=== PATIENT | female | born 1955 | race Caucasian/White ===

== ENCOUNTER → 2016-08-05 | Outpatient (CLI) | payer MEDICARE ==
[~2016-08-05] MED LIST: CLONIDINE0.3 MG PO; GABAPENTIN300 MG PO; HYDROCHLOROTHIA25 MG PO; IBUPROFEN400 MG PO; LEXAPRO10 MG PO; NORCO 325 MG-51 TAB PO; ROBAXIN750 MG PO; TRAMADOL50 MG PO; VICODIN 5/500 505 MG PO; ZESTRIL,PRINIVI40 MG PO
== END | disposition home or self-care (01) ==
LOC: CARD 12:00
DX: Z01.818 Encounter for other preprocedural examination (principal); R94.31 Abnormal electrocardiogram [ECG] [EKG]; I51.7 Cardiomegaly; I35.0 Nonrheumatic aortic (valve) stenosis

== ENCOUNTER → 2016-09-30 | Outpatient (CLI) | payer MEDICARE ==
[2016-09-30 15:23] LABS: BASO # 0.1 10*3/uL (0.0-0.1); BASO % 0.6 % (0.0-1.0); EOS # 0.2 10*3/uL (0.0-0.4); EOS % 2.5 % (1.0-4.0); HEMATOCRIT 33.6 % (37.0-47.0); IG # 0.1 10*3/uL (0.0-0.1); LYMPH # 1.2 10*3/uL (1.3-4.4); LYMPH % 12.7 % (27.0-41.0); MEAN CELL VOLUME 92.3 fl (81.0-99.0); MEAN CORPUSCULAR HGB 30.2 pg (27.0-31.0); MEAN CORPUSCULAR HGB CONC 32.7 g/dl (33.0-37.0); MEAN PLATELET VOLUME 9.5 fl (9.6-12.3); MONO # 0.9 10*3/uL (0.1-1.0); MONO % 9.6 % (3.0-9.0); NEUT # 6.8 10*3/uL (2.3-7.9); PLATELET COUNT AUTOMATED 204 10*3/uL (130-400); RED BLOOD COUNT 3.64 10*6/uL (4.10-5.10); RED CELL DISTRI WIDTH 14.3 % (0-14.5); WHITE BLOOD COUNT 9.2 10*3/uL (4.8-10.8)
[2016-09-30 15:53] LABS: ALBUMIN 2.8 gm/dl (3.1-4.5); ALKALINE PHOSPHATASE 82 U/L (45-117); BILIRUBIN, TOTAL 0.3 mg/dl (0.2-1.0); BUN 6 mg/dl (7-24); CARBON DIOXIDE 29 mmol/L (21-32); CHLORIDE 93 mmol/L (98-107); EST GLOM FILT AFRICAN AMERICAN > 60 ml/min; GLUCOSE 102 mg/dL (65-99); LDH 143 U/L (84-246); MAGNESIUM 2.3 mg/dL (1.5-2.1); PHOSPHOROUS 3.3 mg/dL (2.5-4.9); POTASSIUM 4.6 mmol/L (3.5-5.1); SGOT/AST 14 IU/L (3-35); SGPT/ALT 17 U/L (12-78); SODIUM 130 mmol/L (136-145)
== END | disposition home or self-care (01) ==
LOC: LAB 14:52
PROVIDERS: Obstetrics & Gynecology Gynecology
DX: N90.1 Moderate vulvar dysplasia (principal)

== ENCOUNTER 2017-03-04 23:14 | Inpatient (IN) | payer MEDICARE ==
[~2017-03-04] VITALS: Ht 172.7 cm; Wt 119.4 kg
--- NOTE | ~2017-03-04 | ST ---
[place], [place] EXERCISE STRESS TEST REPORT NAME: ARSENIO MURPHY [facility] #: [id number] UNIT #: [id number] ROOM: 529 DOCTOR: CLAUDY REYNA MD BIRTHDATE: [birth year] DOS: 03/08/2017 LEXISCAN STRESS EKG REPORT REFERRING PHYSICIAN: Dr. Ayala. INDICATION: Elevated troponin. DESCRIPTION OF PROCEDURE: The patient underwent standard protocol Lexiscan stress EKG. The patient's baseline EKG shows normal sinus rhythm with right bundle-branch block. The patient's baseline heart rate was 70 with a blood pressure 160/78. The patient's peak heart rate was 94 with a blood pressure 144/72. The patient had no ischemic changes to his EKG. The patient had no arrhythmias and no anginal symptoms. SUMMARY OF FINDINGS: Unremarkable Lexiscan stress EKG. Please see separate report for perfusion scan results. CLAUDY REYNA MD CM:STRESS:EXERCISE STRESS TEST REPORT [id number] CLAUDY REYNA MD
--- NOTE | ~2017-03-04 | PR ---
[place], [place] PROGRESS NOTE NAME: ARSENIO MURPHY UNIT #: [id number] ROOM: [facility] DOCTOR: CHRISTIANO TANG MD BIRTHDATE: [birth year] DOS: 03/06/2017 CARDIOLOGY FOLLOWUP VISIT NOTE SUBJECTIVE: The patient with valvular heart disease and elevated troponin. The patient is feeling better. Denies any chest pain or shortness of breath. No palpitations, no dizziness. She appears slightly dehydrated, getting IV. No PND, no orthopnea. REVIEW OF SYSTEMS: Review of the 8 systems negative except as mentioned. RHYTHM STRIPS: The patient is in sinus rhythm. PHYSICAL EXAMINATION: VITAL SIGNS: Blood pressure is 90/52, pulse 83, respiratory rate is 16. GENERAL: Alert, comfortable, in no acute distress. HEAD AND NECK: Pupils are round and equal. No jaundice. THROAT: Tongue was moist and pharynx was clear. NECK: Supple, no distended neck veins, no carotid bruit. CHEST: Symmetrical, nontender. LUNGS: Diffuse scattered rhonchi. Good air entry bilaterally. HEART: Regular rhythm, no S3, grade 2/6 systolic ejection murmur. No palpable thrills. ABDOMEN: Obese, nontender. Bowel sounds normal. EXTREMITIES: Showed 1+ edema. Distal pulses are palpable. SKIN: Warm and dry. No cyanosis, no clubbing. RECTAL: Deferred. GENITOURINARY: Deferred. MEDICATIONS AND ALLERGIES: Reviewed. IMPRESSION: 1. Elevated troponins, currently denies any chest pains. 2. Moderate aortic stenosis. 3. Mild hypotension, positive due to dehydration. 4. Falls. 5. Obesity. RECOMMENDATIONS: 1. Continue current medications. 2. Continue IV fluids. She denies any chest pain. Clinically, no acute heart failure. Lexiscan stress test on Wednesday due to her elevated troponin and CAD risk factors. 3. No family at bedside at the time of my examination. 4. Her blood pressure medications were on hold due to her low blood pressure. [place], [place] PROGRESS NOTE NAME: ARSENIO MURPHY UNIT #: [id number] ROOM: [facility] DOCTOR: CHRISTIANO TANG MD BIRTHDATE: [birth year] CHRISTIANO TANG MD CM:PNJEAN 1525 57 CHRISTIANO TANG MD 03/06/176 interface
--- NOTE | ~2017-03-04 | PR ---
[place], [place] PROGRESS NOTE [id number] #: [id number] ROOM: 529 DOCTOR: CHRISTIANO TANG MD BIRTHDATE: [birth year] DOS: 03/07/2017 REASON FOR VISIT: Valvular heart disease and elevated cardiac enzymes. HISTORY OF PRESENT ILLNESS: The patient denies any chest pain. Breathing is better. She slept good and denies any palpitations or dizziness, no PND, no orthopnea, no nausea or vomiting. REVIEW OF SYSTEMS: Review of the 8 systems negative except as mentioned above. PHYSICAL EXAMINATION: VITAL SIGNS: Reviewed. GENERAL: Alert, comfortable, in no acute distress. HEENT: Pupils are round and equal. No jaundice. NECK: Supple, no distended neck veins, no carotid bruit. CHEST: Nontender. LUNGS: Clear to auscultation bilaterally. HEART: Regular rhythm, no S3, grade 2/6 systolic murmur. EXTREMITIES: Showed trace edema. Distal pulses are palpable. SKIN: Warm and dry. No cyanosis, no clubbing. NEUROLOGIC: Reviewed. IMPRESSION: 1. Borderline elevation of troponin. 2. Moderate aortic stenosis. 3. Mild hypertension, asymptomatic. 4. Mild dehydration, resolved. 5. History of falls. 6. Exogenous obesity. RECOMMENDATIONS: 1. Continue current medications. 2. Lexiscan stress tomorrow to rule out ischemia due to her elevated cardiac enzymes and CAD risk factors. 3. The above treatment was discussed with the patient and her family member who is at bedside and all questions were answered. [place], [place] PROGRESS NOTE [facility]: [id number] UN[facility] #: [id number] ROOM: 529 DOCTOR: CHRISTIANO TANG MD BIRTHDATE: [birth year] CHRISTIANO TANG MD CM:PNTRANS 9 [id number] CHRISTIANO TANG MD 03/07/172137 interface
[2017-03-04 23:14] VITALS: BP 162/85
[2017-03-05] VITALS (9 sets, daily range): BP systolic 74–110; BP diastolic 49–62
[2017-03-05 00:45] LABS: HEMATOCRIT 33.7 % (37.0-47.0); MEAN CELL VOLUME 88.2 fl (81.0-99.0); MEAN CORPUSCULAR HGB 28.8 pg (27.0-31.0); MEAN CORPUSCULAR HGB CONC 32.6 g/dl (33.0-37.0); MEAN PLATELET VOLUME 10.2 fl (9.6-12.3); PLATELET COUNT AUTOMATED 238 10*3/uL (130-400); RED BLOOD COUNT 3.82 10*6/uL (4.10-5.10); RED CELL DISTRI WIDTH 14.6 % (0-14.5); WHITE BLOOD COUNT 23.5 10*3/uL (4.8-10.8)
[2017-03-05 01:03] LABS: ALBUMIN 2.5 gm/dl (3.1-4.5); CREATININE 1.7 mg/dL (0.55-1.02); POTASSIUM 4.3 mmol/L (3.5-5.1); TOTAL PROTEIN 7.1 gm/dL (6.4-8.2)
[2017-03-05 01:05] LABS: TROPONIN I 0.174 ng/ml (<0.045)
--- NOTE | 2017-03-05 01:11 | NUR ---
PATIENT'S PASSWORD IS "YOUNG 1"
[2017-03-05 01:18] LABS: PLATELET SUFFICIENCY NORMAL (NORMAL); TOTAL CELLS COUNTED 100 #CELLS
--- NOTE | 2017-03-05 01:22 | NUR ---
PATIENT ACCIDENTLY PULLED OUT HER SECOND IV. ANOTHER NURSE WILL ATTEMPT TO PUT IN ANOTHER ONE.
[2017-03-05 01:57] LABS: BILIRUBIN NEGATIVE (NEGATIVE); BLOOD 3+ (NEGATIVE); CLARITY CLOUDY (CLEAR); COLOR YELLOW (YELLOW); GLUCOSE NEGATIVE (NEGATIVE); KETONE NEGATIVE (NEGATIVE); LEUKO ESTERASE 3+ (NEGATIVE); NITRITE NEGATIVE (NEGATIVE); SPECIFIC GRAVITY 1.015 (1.005-1.030); UROBILINOGEN 0.2 E.U./dl (0.2-1.0)
[2017-03-05 02:04] LABS: BACTERIA 4+; WBC TNTC wbc/hpf (0-5)
[2017-03-05 02:05] LABS: RBC 21-30 rbc/hpf (0-2)
--- NOTE | 2017-03-05 03:30 | NUR ---
A 61, admitted to ICCU, under the services of LYNDSEY Hernandez DO with a diagnosis of SEVERE SEPSIS,UTI,CHF. Chief complaint is FALLING AT HOME. Patient arrived via stretcher from ER. Monitor applied. Initial assessment completed. Vital signs taken and recorded. LYNDSEY HERNANDEZ DO notified of admission to the unit. Orders received. See assessment for past medical history, medications and allergies. Patient and/or family oriented to unit. [facility] ICCU visitation policy reviewed. Clothing/patient valuable form completed. KAREN MATHEWS
[2017-03-05] MEDS ORDERED: NEURONTIN100 MG PO (03:50)
[2017-03-05] MEDS ORDERED: CLONIDINE0.2 MG PO (03:51)
[2017-03-05] MEDS ORDERED: LISINOPRIL20 MG PO (03:52)
[2017-03-05] MEDS ORDERED: VITAMIN D10000 UNIT PO (03:53)
[2017-03-05 03:57] LABS: CKMB 20.5 ng/ml (0.5-3.6)
[2017-03-05 04:47] LABS: HEMATOCRIT 30.6 % (37.0-47.0); HEMOGLOBIN 9.9 g/dl (12.0-16.0); MEAN CELL VOLUME 87.9 fl (81.0-99.0); MEAN CORPUSCULAR HGB 28.4 pg (27.0-31.0); MEAN CORPUSCULAR HGB CONC 32.4 g/dl (33.0-37.0); MEAN PLATELET VOLUME 10.2 fl (9.6-12.3); PLATELET COUNT AUTOMATED 217 10*3/uL (130-400); RED BLOOD COUNT 3.48 10*6/uL (4.10-5.10); RED CELL DISTRI WIDTH 14.6 % (0-14.5); WHITE BLOOD COUNT 23.1 10*3/uL (4.8-10.8)
[2017-03-05 04:57] LABS: INTERNATIONAL NORM RATIO 1.3 (2.0-3.5)
[2017-03-05 05:05] LABS: ALBUMIN 2.1 gm/dl (3.1-4.5); CREATININE 1.74 mg/dL (0.55-1.02); PHOSPHOROUS 3.7 mg/dL (2.5-4.9); POTASSIUM 4.6 mmol/L (3.5-5.1); TOTAL PROTEIN 6.6 gm/dL (6.4-8.2)
[2017-03-05 05:06] LABS: FREE T4 1.51 ng/dl (0.76-1.46)
[2017-03-05 05:11] LABS: THYROID STIM HORMONE (HS) 1.31 uIU/ml (0.358-4.75)
[2017-03-05 05:17] LABS: ATYPICAL LYMPHS 1 % (0-0); PLATELET SUFFICIENCY NORMAL (NORMAL); TOTAL CELLS COUNTED 100 #CELLS
--- NOTE | 2017-03-05 05:46 | NUR ---
PRIME SEPSIS REP CALLED AND WANTED ROCEPHIN GIVEN BEFORE 0700. SINAN IN ER AROUND [phone] FINISHED HERE IN ICCU.
--- NOTE | 2017-03-05 07:05 | NUR ---
DR. ABBOTT AWARE OF CONSULT.
[2017-03-05 07:13] LABS: URINE AMPHETAMINES < 1000 (1000ng/ml); URINE BARBITURATES < 200 (200ng/ml); URINE BENZODIAZEPINES < 200 (200ng/ml); URINE CANNABINOIDS (THC) < 50 (50ng/ml); URINE COCAINE < 300 (300ng/ml); URINE METHADONE < 300 (300ng/ml); URINE OPIATES < 300 (300ng/ml)
[2017-03-05 07:30] LABS: URINE PHENCYCLIDINE < 25 (25ng/ml)
--- NOTE | 2017-03-05 08:29 | NUR ---
PATIENT C/O PAIN "ALL OVER". MEDICATED WITH NORCO PER PRN ORDER. WILL CONTINUE TO MONITOR.
--- NOTE | 2017-03-05 09:26 | NUR ---
HELD CATAPRES HELD DUE TO BLOOD PRESSURE 90/56.
--- NOTE | 2017-03-05 09:38 | NUR ---
Patient at ultrasound testing and not able to participated in OT evaluation at this time. OTR will recheck at a later time. Mony Dallas OTR/l
--- NOTE | 2017-03-05 10:32 | NUR ---
Patient offered OT evaluation this date s/p ultrasound. Patient declined OT this am. OTR will recheck at a later date. Mony Dallas OTR/l
--- NOTE | 2017-03-05 10:34 | NUR ---
PHYSICAL THERAPY Two attempts this date: first at ultrasound and the patient requested later time or date. Thank you for this referral. Smiley Simons,PT
--- NOTE | 2017-03-05 12:16 | NUR ---
NOTIFIED OF BLOOD PRESSURE 83/50.
--- NOTE | 2017-03-05 12:39 | NUR ---
In to see patient to discuss order for senior care stay. Patient stated she wants a private room at [facility]. I explained the facility is full right now and no private rooms are available at this time. Asked if she would be willing to go to [facility] and she adamately refused. She stated her thinks she needs to go but if she can't have a private room at [facility] then she is going home. Offered home health with PT and patient was agreeable to this. Offered list of agencies, patient chooses [facility]. will need new home health order for nurse, PT prior to discharge.
--- NOTE | 2017-03-05 13:37 | NUR ---
NOTIFIED OF FLUID BOLUD BEING COMPLETE AND REPEAT BLOOD PRESSURE 77/49. AND ALSO NOTIFIED OF PATIENT C/O ITCHY EYES AND DRAINAGE.
--- NOTE | 2017-03-05 14:16 | NUR ---
PHYSICAL THERAPY PAtient on bedisde commode for long period fo time and then [facility] Doctors. Smiley Simons,PT
[2017-03-05 14:30] LABS: BASO % 0.3 % (0.0-1.0); EOS # 0.1 10*3/uL (0.0-0.4); EOS % 0.9 % (1.0-4.0); HEMATOCRIT 31.2 % (37.0-47.0); HEMOGLOBIN 10.1 g/dl (12.0-16.0); LYMPH # 0.6 10*3/uL (1.3-4.4); LYMPH % 3.7 % (27.0-41.0); MEAN CELL VOLUME 89.9 fl (81.0-99.0); MEAN CORPUSCULAR HGB 29.1 pg (27.0-31.0); MEAN CORPUSCULAR HGB CONC 32.4 g/dl (33.0-37.0); MEAN PLATELET VOLUME 10.1 fl (9.6-12.3); MONO # 0.7 10*3/uL (0.1-1.0); MONO % 4.8 % (3.0-9.0); NEUT # 13.4 10*3/uL (2.3-7.9); NEUT % 89.6 % (47.0-73.0); PLATELET COUNT AUTOMATED 217 10*3/uL (130-400); RED BLOOD COUNT 3.47 10*6/uL (4.10-5.10); RED CELL DISTRI WIDTH 14.8 % (0-14.5); WHITE BLOOD COUNT 14.9 10*3/uL (4.8-10.8)
[2017-03-05 14:45] LABS: ALBUMIN 2.2 gm/dl (3.1-4.5); CREATININE 1.51 mg/dL (0.55-1.02); POTASSIUM 4.7 mmol/L (3.5-5.1); TOTAL PROTEIN 6.6 gm/dL (6.4-8.2)
[2017-03-05 14:47] LABS: TROPONIN I 0.071 ng/ml (<0.045)
--- NOTE | 2017-03-05 14:49 | NUR ---
PHYSICAL THERAPY PAtient evaluated in ICCU, full evaluation to follow. Continue with PT as per plan of care with fall and acute debiltiy precautions. PAtient may require SNF for impaired mobility in order to reurn to home at safe and (I) PLOF. PAtient has had numerous fallls this week prior to admissions. PAtient is moderate complexity via chart review, tests and evaluation: 99237. Thank you for this referral. Smiley Simons,PT
--- NOTE | 2017-03-05 17:36 | NUR ---
PATIENT REQUESTING A PAIN PILL. STATING SHE IS HURTING ALL OVER. MEDICATED WITH TAWANA TODDCO.
--- NOTE | 2017-03-05 20:27 | NUR ---
UP WITH HEAVY ASSIST OF ONE TO BSC. PT WITHOUT COMPLAINTS. SKIN W/D.
[2017-03-06] VITALS: BP 91/55
[2017-03-06 04:00] VITALS: BP 96/60
[2017-03-06 04:26] LABS: BASO # 0.1 10*3/uL (0.0-0.1); BASO % 0.4 % (0.0-1.0); EOS # 0.2 10*3/uL (0.0-0.4); EOS % 1.3 % (1.0-4.0); HEMATOCRIT 30.4 % (37.0-47.0); HEMOGLOBIN 9.7 g/dl (12.0-16.0); LYMPH # 0.6 10*3/uL (1.3-4.4); MEAN CELL VOLUME 90.2 fl (81.0-99.0); MEAN CORPUSCULAR HGB 28.8 pg (27.0-31.0); MEAN CORPUSCULAR HGB CONC 31.9 g/dl (33.0-37.0); MEAN PLATELET VOLUME 9.8 fl (9.6-12.3); NEUT # 10.5 10*3/uL (2.3-7.9); NEUT % 84.6 % (47.0-73.0); PLATELET COUNT AUTOMATED 200 10*3/uL (130-400); RED BLOOD COUNT 3.37 10*6/uL (4.10-5.10); RED CELL DISTRI WIDTH 14.7 % (0-14.5); WHITE BLOOD COUNT 12.5 10*3/uL (4.8-10.8)
[2017-03-06 04:51] LABS: CREATININE 1.16 mg/dL (0.55-1.02); POTASSIUM 4.2 mmol/L (3.5-5.1)
[2017-03-06 08:00] VITALS: BP 90/52
[2017-03-06 12:00] VITALS: BP 91/49
[2017-03-06 16:00] VITALS: BP 106/70
--- NOTE | 2017-03-06 16:03 | NUR ---
PT WALKER AROUND THE ICCU AREA,USING A WALKER,TOLERATED WELL,NO SHORTNESS F BREATH OR TACHYCARDIA,GAIT SLOW/STEAD/ONLY HAS TROUBLE GET UP AND DOWN TO CHAIR
--- NOTE | 2017-03-06 17:57 | NUR ---
BACK TO BED
--- NOTE | 2017-03-06 19:34 | NUR ---
24 HR AND COMPLETE chart check completed. NATE MEDINA RN
[2017-03-06 20:00] VITALS: BP 120/74
[2017-03-07] VITALS: BP 113/62
[2017-03-07 04:00] VITALS: BP 108/62
[2017-03-07 05:14] LABS: BASO # 0.1 10*3/uL (0.0-0.1); BASO % 0.8 % (0.0-1.0); EOS # 0.2 10*3/uL (0.0-0.4); EOS % 2.3 % (1.0-4.0); HEMATOCRIT 27.4 % (37.0-47.0); HEMOGLOBIN 8.9 g/dl (12.0-16.0); LYMPH # 0.6 10*3/uL (1.3-4.4); LYMPH % 8.3 % (27.0-41.0); MEAN CELL VOLUME 90.7 fl (81.0-99.0); MEAN CORPUSCULAR HGB 29.5 pg (27.0-31.0); MEAN CORPUSCULAR HGB CONC 32.5 g/dl (33.0-37.0); MEAN PLATELET VOLUME 10.6 fl (9.6-12.3); MONO # 0.8 10*3/uL (0.1-1.0); MONO % 11.3 % (3.0-9.0); NEUT # 5.7 10*3/uL (2.3-7.9); NEUT % 76.5 % (47.0-73.0); PLATELET COUNT AUTOMATED 182 10*3/uL (130-400); RED BLOOD COUNT 3.02 10*6/uL (4.10-5.10); RED CELL DISTRI WIDTH 14.8 % (0-14.5); WHITE BLOOD COUNT 7.4 10*3/uL (4.8-10.8)
[2017-03-07 05:30] LABS: ALBUMIN 1.9 gm/dl (3.1-4.5); ALKALINE PHOSPHATASE 81 U/L (45-117); BUN 14 mg/dl (7-24); CHLORIDE 101 mmol/L (98-107); CREATININE 0.78 mg/dL (0.55-1.02); POTASSIUM 4.3 mmol/L (3.5-5.1); SGOT/AST 38 IU/L (3-35); SGPT/ALT 32 U/L (12-78); SODIUM 133 mmol/L (136-145)
[2017-03-07 08:00] VITALS: BP 147/88
[2017-03-07 12:00] VITALS: BP 121/72
--- NOTE | 2017-03-07 14:47 | NUR ---
Transferred to [facility] via bed . Report to Jocelyn.
[2017-03-07 16:00] VITALS: BP 167/92
--- NOTE | 2017-03-07 19:50 | NUR ---
PT. AWAKE, ALERT AND ORIENTED X 3 AT THIS TIME. PT. IN BED DENIES SOB, CP. CALL LIGHT WITHIN REACH, BED IN LOWEST POSITION, WHEELS LOCKED, BED ALARM ON FOR RECENT FALL HX. SEE SHIFT ASSESSMENT.
[2017-03-07 20:00] VITALS: BP 117/68
--- NOTE | 2017-03-07 22:43 | NUR ---
@1005 RECEIVED CRITICAL RESULT ON PTS. BLOOD CULTURE. CALLED AND NOTIFIED DR. ESPANA OF CRITICAL RESULT. DR. ESPANA INSTRUCTED THIS NURSE TO ORDER A REPEAT BLOOD CULTURE AND INFECTIOUS DISEASE CONSULT.
[2017-03-08] VITALS: BP 122/58
[2017-03-08 04:00] VITALS: BP 126/64
[2017-03-08 06:19] LABS: BASO % 0.7 % (0.0-1.0); EOS # 0.1 10*3/uL (0.0-0.4); EOS % 2.3 % (1.0-4.0); HEMATOCRIT 29.5 % (37.0-47.0); HEMOGLOBIN 9.4 g/dl (12.0-16.0); LYMPH # 0.8 10*3/uL (1.3-4.4); LYMPH % 13.7 % (27.0-41.0); MEAN CELL VOLUME 90.2 fl (81.0-99.0); MEAN CORPUSCULAR HGB 28.7 pg (27.0-31.0); MEAN CORPUSCULAR HGB CONC 31.9 g/dl (33.0-37.0); MEAN PLATELET VOLUME 10.7 fl (9.6-12.3); MONO # 0.7 10*3/uL (0.1-1.0); MONO % 11.7 % (3.0-9.0); NEUT % 70.9 % (47.0-73.0); PLATELET COUNT AUTOMATED 187 10*3/uL (130-400); RED BLOOD COUNT 3.27 10*6/uL (4.10-5.10); RED CELL DISTRI WIDTH 14.8 % (0-14.5); WHITE BLOOD COUNT 5.6 10*3/uL (4.8-10.8)
[2017-03-08 06:50] LABS: ALKALINE PHOSPHATASE 91 U/L (45-117); BUN 10 mg/dl (7-24); CHLORIDE 101 mmol/L (98-107); CREATININE 0.79 mg/dL (0.55-1.02); POTASSIUM 4.6 mmol/L (3.5-5.1); SGOT/AST 26 IU/L (3-35); SGPT/ALT 32 U/L (12-78); SODIUM 134 mmol/L (136-145); TOTAL PROTEIN 6.3 gm/dL (6.4-8.2)
[2017-03-08 08:00] VITALS: BP 136/80
--- NOTE | 2017-03-08 08:04 | NUR ---
DR CHO'S OFFICE NOTIFIED OF CONSULT.
--- NOTE | 2017-03-08 09:07 | NUR ---
Patient not available for Occupational Therapy evaluation this am as she was on the commode with her assisting. asked about her "rehab". OT informed with patient present, that patient did have PT evaluation 03/05/17 but that he would need to speak with case management on the 4th floor for further d/c plans. OTR will recheck at a later time. Mony Dallas OTR/vanessa
--- NOTE | 2017-03-08 09:11 | NUR ---
SW SPOKE WITH PT AND . CAN NOT TAKE CARE OF PT IF SHE CAN NOT TRANSFER AT HOME. HAS A BAD BACK. REQUESTING A WHELLHCAIR FOR AT HOME IF [facility] DOES NOT HAVE A PRIVATE ROOM.
--- NOTE | 2017-03-08 09:13 | NUR ---
JEYSON INQUIRED AT [facility] IF THEY HAD A PRIVATE ROOM. PAMELLA NOTIFIED JEYSON THAT PRIVATE ROOM WOULD BE AVAILBLE LATER TODAY. JEYSON SENT REFERRAL TO [facility].
--- NOTE | 2017-03-08 09:36 | NUR ---
SW COMPLETED HOSPITAL EXEMPTION IN HENS SYSTEM FOR REHAB STAY AT THE [facility].
[2017-03-08 12:00] VITALS: BP 137/75
--- NOTE | 2017-03-08 12:02 | NUR ---
INFORMED SIGNED CONSENT OBTAINED FOR LEXISCAN STRESS TEST WITH DR REYNA, RESTING EKG HR 78 BP 160/78. PULSE OX 100% LUNGS CLEAR. PT COMPLETED ONE MINUTE OF LEXISCAN PROTOCOL WITH PT RECEIVING LEXISCAN 0.4MG IV OVER OVER 10 SECONDS. PT C/O SOB AND HEADACHE WITH INFUSION. NO ARRHYTHMIAS OR ST CHANGES NOTED. LAST RECOVERY HR OF 92 BP 166/88. PT IN STABLE CONDITION, AWAITING NUCLEAR IMAGES.
--- NOTE | 2017-03-08 12:17 | NUR ---
PHYSICAL THERAPY Kellen seen this AM 1:1 for her therapy session. Transfer supine/sit MIN A X 1, sitting balance CGA X 1, sit/stand and up on wheeled walker MIN A X 1. Gait 10' X 2, with W/W into Pt's bathroom MIN A X 1. Followed by gait total 85' X 1, MOD A X 1, with W/W no LOB, verbal cueing for gait, walker safety and present. Pt back supine in bed call light and no complaint. MARQUIS SHARP HORIZONTAL DRILL OPERATOR.
--- NOTE | 2017-03-08 14:16 | NUR ---
Patient approached for Occupational Therapy evaluation this pm. Daughter present and patient eating lunch/snack in bed. Patient and daughter reports that patient will be transferred to [facility]SNF before 4:30 pm today and politely decline OT evaluation d/t transfer. Thank you for this referral Mony Dallas OTR/l
[2017-03-08] MEDS ORDERED: VITAMIN D5000 UNI1 PO (15:30)
[2017-03-08] MEDS ORDERED: NATURE'S BLEND100 M2 PO (15:30)
[2017-03-08] MEDS ORDERED: ASPIRIN ADULT L81 M2 PO (15:30)
[2017-03-08] MEDS ORDERED: NATURE'S BLEND F1 MG PO (15:30)
[2017-03-08] MEDS ORDERED: DOXYCYCLINE100 M3 PO (15:31)
[2017-03-08 16:00] VITALS: BP 120/69
--- NOTE | 2017-03-08 18:42 | NUR ---
REPORT CALLED TO ZEN AT [facility].
--- NOTE | 2017-03-08 18:42 | NUR ---
Discharge instructions reviewed with patient/family. Patient receptive and verbalizes understanding. Follow-up care arranged. Written instructions given to patient/family. SHARON CERVANTES
--- NOTE | 2017-03-08 19:52 | NUR ---
PT DISCHARGED OFF FLOOR VIA [facility]. PT STABLE. [place] REMOVED
--- NOTE | 2017-03-09 07:43 | NUR ---
PHYSICAL THERAPY CO-SIGN I approve of the Phyical Therapy notes written above. CAROL FARMER PT
== END 2017-03-08 19:52 | disposition other institution (70) | DRG 871 ==
LOC: ED 23:14 → ICCU 03-05 02:54 → 5E 03-07 14:05
PROVIDERS: Emergency Medicine; Internal Medicine; ADMIT Internal Medicine
PROC: 4A02XM4 Measurement of Cardiac Total Activity, External Approach (ICD-10-PCS; principal; 2017-03-08)
PROC: 3E073KZ Introduction of Other Diagnostic Substance into Coronary Artery, Percutaneous Approach (ICD-10-PCS; principal; 2017-03-08)
DX: A41.9 Sepsis, unspecified organism (principal); G93.41 Metabolic encephalopathy; N17.0 Acute kidney failure with tubular necrosis; E43 Unspecified severe protein-calorie malnutrition; I11.0 Hypertensive heart disease with heart failure; I95.9 Hypotension, unspecified; E66.01 Morbid (severe) obesity due to excess calories; E87.8 Other disorders of electrolyte and fluid balance, not elsewhere classified; I50.9 Heart failure, unspecified; E87.1 Hypo-osmolality and hyponatremia; N39.0 Urinary tract infection, site not specified; F10.239 Alcohol dependence with withdrawal, unspecified; T79.6XXA Traumatic ischemia of muscle, initial encounter; M19.90 Unspecified osteoarthritis, unspecified site; F32.9 Major depressive disorder, single episode, unspecified; R65.20 Severe sepsis without septic shock; R74.0 Nonspecific elevation of levels of transaminase and lactic acid dehydrogenase [LDH]; R73.9 Hyperglycemia, unspecified; M54.5 Low back pain; G89.29 Other chronic pain; I35.0 Nonrheumatic aortic (valve) stenosis; R31.9 Hematuria, unspecified; D64.9 Anemia, unspecified; E86.0 Dehydration; G62.9 Polyneuropathy, unspecified; W18.39XA Other fall on same level, initial encounter; Y93.89 Activity, other specified; Y92.89 Other specified places as the place of occurrence of the external cause; Y99.8 Other external cause status; Z68.39 Body mass index [BMI] 39.0-39.9, adult; Z88.8 Allergy status to other drugs, medicaments and biological substances; Z88.1 Allergy status to other antibiotic agents; Z91.040 Latex allergy status; Z79.899 Other long term (current) drug therapy; Z90.710 Acquired absence of both cervix and uterus; Z83.3 Family history of diabetes mellitus; Z82.3 Family history of stroke; Z85.42 Personal history of malignant neoplasm of other parts of uterus; I45.10 Unspecified right bundle-branch block

== ENCOUNTER → 2017-04-15 | Outpatient (CLI) | payer MEDICARE ==
[~2017-04-15] MED LIST changes: +ASPIRIN ADULT L81 M2 PO; +CLONIDINE0.2 MG PO; +DOXYCYCLINE100 M3 PO; +LISINOPRIL20 MG PO; +NATURE'S BLEND F1 MG PO; +NATURE'S BLEND100 M2 PO; +NEURONTIN100 MG PO; +VITAMIN D10000 UNIT PO; +VITAMIN D5000 UNI1 PO
== END | disposition home or self-care (01) ==
LOC: MAMMO 10:05
DX: Z12.31 Encounter for screening mammogram for malignant neoplasm of breast (principal)

== ENCOUNTER → 2017-07-30 | Outpatient (CLI) | payer MEDICARE | END | disposition home or self-care (01) | LOC: WOUNDCARE 03:30 | DX: I87.331 Chronic venous hypertension (idiopathic) with ulcer and inflammation of right lower extremity (principal); L89.899 Pressure ulcer of other site, unspecified stage; E78.00 Pure hypercholesterolemia, unspecified; Z85.89 Personal history of malignant neoplasm of other organs and systems; Z87.891 Personal history of nicotine dependence ==

== ENCOUNTER → 2017-08-04 | Outpatient (CLI) | payer MEDICARE | END | disposition home or self-care (01) | LOC: WOUNDCARE 00:32 | DX: L89.892 Pressure ulcer of other site, stage 2 (principal); E78.00 Pure hypercholesterolemia, unspecified; I10 Essential (primary) hypertension; Z85.89 Personal history of malignant neoplasm of other organs and systems; Z87.891 Personal history of nicotine dependence ==

== ENCOUNTER → 2017-08-11 | Outpatient (CLI) | payer MEDICARE | END | disposition home or self-care (01) | LOC: WOUNDCARE 01:42 | DX: I87.331 Chronic venous hypertension (idiopathic) with ulcer and inflammation of right lower extremity (principal); L89.612 Pressure ulcer of right heel, stage 2; L97.412 Non-pressure chronic ulcer of right heel and midfoot with fat layer exposed; I10 Essential (primary) hypertension; E78.00 Pure hypercholesterolemia, unspecified; Z85.89 Personal history of malignant neoplasm of other organs and systems; Z87.891 Personal history of nicotine dependence ==

== ENCOUNTER → 2017-08-18 | Outpatient (CLI) | payer MEDICARE | END | disposition home or self-care (01) | LOC: WOUNDCARE 01:46 | DX: I87.331 Chronic venous hypertension (idiopathic) with ulcer and inflammation of right lower extremity (principal); L89.892 Pressure ulcer of other site, stage 2; L97.412 Non-pressure chronic ulcer of right heel and midfoot with fat layer exposed; L84 Corns and callosities; E78.00 Pure hypercholesterolemia, unspecified; Z85.89 Personal history of malignant neoplasm of other organs and systems; Z87.891 Personal history of nicotine dependence ==

== ENCOUNTER → 2018-02-02 | Outpatient (CLI) | payer MEDICARE ==
[~2018-02-02] MED LIST changes: +HYDROCODONE-AC1 EAC1 PO; +NEURONTIN300 MG PO; +PENICILLIN VK250 MG PO; +ULTRAM50 MG PO; +XARELTO10 MG PO
== END | disposition home or self-care (01) ==
LOC: US 01:19 → RESCLI 01:19
DX: Z01.818 Encounter for other preprocedural examination (principal); R60.0 Localized edema; R94.31 Abnormal electrocardiogram [ECG] [EKG]

== ENCOUNTER → 2018-02-09 | Day surgery (SDC) | payer MEDICARE ==
[~2018-02-09] VITALS: Ht 170.1 cm; Wt 97.5 kg
--- NOTE | ~2018-02-09 | O ---
[place], [place] OPERATIVE NOTE NAME: ARSENIO MURPHY [facility] #: [id number] UNIT #: [id number] ROOM: DOCTOR: BRITTANY GONZALEZANGIE BIRTHDATE: [birth year] DOS: 02/09/2018 OPERATIVE REPORT SURGEON: Angie Soto DPM ASSISTANTS: Dr. Rico Campbell and Jeronimo Jeter, PGY3. PREOPERATIVE DIAGNOSIS: Osteomyelitis, right fifth metatarsal. POSTOPERATIVE DIAGNOSIS: Osteomyelitis, right fifth metatarsal. PROCEDURES PERFORMED: 1. Incision and drainage, bone debridement and bone biopsy of the right fifth metatarsal. 2. Partial repair of complex wound of the right foot DESCRIPTION OF PROCEDURE: The patient was seen in the preop holding area and appropriate site marking was performed. The patient and family concurred. She was brought to the OR and placed on well-padded OR table where IV sedation was achieved. Once this was achieved, due to the patient's neuropathy, a direct approach was made to the wound. PROCEDURE #1: INCISION AND DRAINAGE, BONE DEBRIDEMENT AND BONE BIOPSY OF THE RIGHT FIFTH METATARSAL: An incision was done invasive to the fifth metatarsal where the bone was exposed and bone was debrided extensively with the use of rongeurs and curettes, excising and removing the bone. The bone was sent for Gram stain, aerobic, anaerobic, fungal acid fast as well as biopsy of the bone. The area was irrigated with copious amounts of sterile saline. Now, this was the more distal wound, which was measured at prior to incision drains 1.2 x 1.4 down to bone about 2 cm deep. Then, it was undermined and connected to the more proximal wound, which measured 0.7 x 1.4. This was incised down to bone and made as one big larger wound to 2.5 x 4.0 x 2 cm. More bone was extensively taken down to good healthy bleeding bone. The peroneal brevis tendon was detached from the base of fifth metatarsal and it appeared to be avulsed from this area. After it has been extensively taken down, the tendon was debrided as well as the bone after significant amount of pulse irrigation. The wound was repaired. PROCEDURE #2: PARTIAL REPAIR OF COMPLEX WOUND OF THE RIGHT FOOT: At this point in time, this large wound that measured 2.5 x 4.0 x 2.0 had a complex closure where the tissues were mobilized and undermined and brought back to the center line and made the wound much smaller where it measured 0.9 x 0.5 cm. With this complex closure performed, this made wound much smaller and this was packed very tightly with Nu Gauze packing. The surgical wounds were dressed with Betadine-soaked Adaptic, 4 x 4s, Gin in a sterile compressive fashion. A univalve B-K cast was applied to the right lower extremity. She tolerated the procedure and anesthesia well and left the OR with vital signs stable and vascular status intact. [place], [place] OPERATIVE NOTE NAME: JEFFREYARSENIO L UNIT #: [id number] ROOM: DOCTOR: ANGIE SOTO DPM BIRTHDATE: [birth year] ANGIE SOTO DPM CM:OPRECORD:OPERATIVE NOTE 1332 1530 ANGIE SOTO DPM 03/16/18 1454 interface
--- NOTE | ~2018-02-09 | WRIGHTHP ---
[place], [place] PATIENT HISTORY AND PHYSICAL EXAM NAME: ARSENIO MURPHY [facility] WITH [facility] #: [id number] UNIT #: [id number] ROOM: DOCTOR: ANGIE SOTO DPM BIRTHDATE: [birth year] DOS: 02/09/2018 LOWER EXTREMITY PHYSICAL EXAM: VASCULAR: She has adequate perfusion to the right lower extremity. She has palpable pedal pulses 2/4, DP and PT bilaterally. Good cap fill time on the right. NEUROLOGICAL: She has decreased epicritic sensation on the right. DERMATOLOGICAL: She has a wound that measures prior to debridement on the right lateral fifth metatarsal base, one measures 1.2 x 1.4, 2 cm deep and then it is undermined, another wound that measures 0.7 x 0.4. Once that was taken down, the wound size then measured 2.5 x 4.0, 2 cm deep down the bone. The brevis tendon was detached from fifth metatarsal. The measurements of that. MUSCULOSKELETAL: It appears that she has unstable subtalar joint or mid foot area where she was slightly in varus and the distal portion of her foot. ORTHOPEDIC: Consistent with osteomyelitis of fifth metatarsal, right. ANGIE SOTO DPM CM:HISPHYS:PATIENT HISTORY AND PHYSICAL EXAMINATION 1332 [id number] ANGIE SOTO DPM 03/16/18 1456 interface
--- NOTE | ~2018-02-09 | WRIGHTHP ---
[place], [place] PATIENT HISTORY AND PHYSICAL EXAM NAME: ARSENIO MURPHY [facility] #: [id number] UNIT #: [id number] ROOM: DOCTOR: ANGIE SOTO DPM BIRTHDATE: [birth year] DOS: 02/09/2018 INDICATION NOTE: The patient is seen for chronic ulceration of right lateral fifth metatarsal base, had not been responding to nonoperative care appropriately. At this time, she is set for surgery at [facility] on 02/09/2018. Understands pros, cons, risks, benefits. She understands she is at risk for limb loss, , worsening partial amputation or complete amputation, artery, vein and nerve damage, skin damage, deformity of the foot and extremity extraction, as she knows anything can happen and nothing should happen. With this in mind, she is set for bone debridement. Understands she will more likely not need IV antibiotics, wound VAC and wound care. This might need separate surgery understanding pros, cons, risks and benefits. She also understands anticoagulation therapy, which we talked about. She understands and she consented that verbally. She understands the pros, cons, risks and benefits with that, as discussed with the family in detail. Appropriate site marking was performed. She agreed with the site marking that was performed in the preop holding area. ANGIE SOTO DPM CM:HISPHYS:PATIENT HISTORY AND PHYSICAL EXAMINATION 1332 1449 ANGIE SOTO DPM 02/09/18 1921 interface
[2018-02-09 07:16] VITALS: BP 96/55
[2018-02-09 08:36] VITALS: BP 97/54
[2018-02-09 08:51] VITALS: BP 98/59
[2018-02-09 09:06] VITALS: BP 100/57
[2018-02-10 14:06] LABS: ACID FAST SPEC PROCESSING Tissue Grinding (.)
[2018-02-10 14:06] LABS: ACID FAST SPEC PROCESSING Tissue Grinding (.)
[2018-03-24 11:06] LABS: ACID FAST CULTURE Negative (.)
[2018-03-24 11:06] LABS: ACID FAST CULTURE Negative (.)
== END | disposition home or self-care (01) ==
LOC: SDC 02-01 10:15
PROVIDERS: Podiatrist
DX: M86.171 Other acute osteomyelitis, right ankle and foot (principal); E11.621 Type 2 diabetes mellitus with foot ulcer; I10 Essential (primary) hypertension; E78.00 Pure hypercholesterolemia, unspecified; E66.09 Other obesity due to excess calories; Z98.890 Other specified postprocedural states; Z79.899 Other long term (current) drug therapy; Z82.49 Family history of ischemic heart disease and other diseases of the circulatory system; Z83.3 Family history of diabetes mellitus; Z87.891 Personal history of nicotine dependence; Z90.710 Acquired absence of both cervix and uterus; Z68.33 Body mass index [BMI] 33.0-33.9, adult

== ENCOUNTER → 2018-03-03 | Outpatient (CLI) | payer MEDICARE ==
[2018-03-03 16:01] LABS: BASO # 0.1 10*3/uL (0.0-0.1); EOS # 0.4 10*3/uL (0.0-0.4); EOS % 5.6 % (1.0-4.0); HEMATOCRIT 36.6 % (37.0-47.0); HEMOGLOBIN 11.6 g/dl (12.0-16.0); LYMPH # 1.7 10*3/uL (1.3-4.4); LYMPH % 24.1 % (27.0-41.0); MEAN CELL VOLUME 86.3 fl (81.0-99.0); MEAN CORPUSCULAR HGB 27.4 pg (27.0-31.0); MEAN CORPUSCULAR HGB CONC 31.7 g/dl (33.0-37.0); MEAN PLATELET VOLUME 9.6 fl (9.6-12.3); MONO # 0.5 10*3/uL (0.1-1.0); MONO % 7.6 % (3.0-9.0); NEUT # 4.3 10*3/uL (2.3-7.9); NEUT % 61.1 % (47.0-73.0); PLATELET COUNT AUTOMATED 318 10*3/uL (130-400); RED BLOOD COUNT 4.24 10*6/uL (4.10-5.10); RED CELL DISTRI WIDTH 15.4 % (0-14.5)
[2018-03-03 16:17] LABS: ALBUMIN 3.8 gm/dl (3.1-4.5); CREATININE 1.29 mg/dL (0.55-1.02); POTASSIUM 4.4 mmol/L (3.5-5.1); TOTAL PROTEIN 8.4 gm/dL (6.4-8.2)
== END | disposition home or self-care (01) ==
LOC: LAB 15:31
PROVIDERS: Specialist
DX: M86.671 Other chronic osteomyelitis, right ankle and foot (principal)

== ENCOUNTER → 2018-06-29 | Outpatient (CLI) | payer MEDICARE | END | disposition home or self-care (01) | LOC: US 15:44 | DX: M79.89 Other specified soft tissue disorders (principal); R60.0 Localized edema ==

== ENCOUNTER 2019-06-17 02:28 | Emergency (ER) | payer MEDICARE ==
[~2019-06-17] VITALS: Ht 162.5 cm; Wt 99.8 kg
== END 2019-06-17 04:32 | disposition expired ==
LOC: ED 02:28
DX: I46.9 Cardiac arrest, cause unspecified (principal); G89.29 Other chronic pain; I11.0 Hypertensive heart disease with heart failure; I50.9 Heart failure, unspecified; E66.01 Morbid (severe) obesity due to excess calories; E78.00 Pure hypercholesterolemia, unspecified; G62.9 Polyneuropathy, unspecified; Z91.048 Other nonmedicinal substance allergy status; Z88.1 Allergy status to other antibiotic agents; Z91.040 Latex allergy status; Z88.8 Allergy status to other drugs, medicaments and biological substances; Z79.899 Other long term (current) drug therapy; Z88.0 Allergy status to penicillin; Z90.710 Acquired absence of both cervix and uterus